=== PATIENT | male | born 1940 | race Caucasian/White ===

== ENCOUNTER → 2017-08-18 | Day surgery (SDC) | payer OTHER ==
[2017-08-03 12:35] LABS: BASOPHILS # (AUTO) 0.1 (0.0-0.1); EOSINOPHILS # (AUTO) 0.2 (0.0-0.4); EOSINOPHILS % 2.8 % (0.0-6.0); HEMATOCRIT 43.6 % (38.2-49.6); HEMOGLOBIN 14.6 g/dL (14.0-18.0); LYMPHOCYTES % 29.7 % (18.0-39.1); MEAN CORPUSCULAR HEMOGLOBIN 32.2 pg (28-32); MEAN CORPUSCULAR HGB CONC 33.5 g/dL (31-35); MEAN CORPUSCULAR VOLUME 96.2 fL (81-99); MONOCYTES # (AUTO) 0.6 (0.2-0.8); MONOCYTES % 9.2 % (4.4-11.3); NEUTROPHILS # (AUTO) 3.9 (2.1-6.9); PLATELET COUNT 161 x10e3/uL (140-360); RED BLOOD COUNT 4.53 x10e6/uL (4.3-5.7); RED CELL DISTRIBUTION WIDTH 13.2 % (11.7-14.4)
[2017-08-03 12:54] LABS: ANION GAP 12.8 mmol/L (8-16); BLOOD UREA NITROGEN 10 mg/dL (7-26); BUN/CREATININE RATIO 10 (6-25); CARBON DIOXIDE 28 mmol/L (22-29); CHLORIDE 105 mmol/L (98-107); CREATININE, SERUM 1.04 mg/dL (0.72-1.25); EST GLOMERULAR FILTRATION RATE > 60 ML/MIN (60-); GLUCOSE 80 mg/dL (74-118); POTASSIUM 3.8 mmol/L (3.5-5.1); SODIUM 142 mmol/L (136-145)
--- NOTE | 2017-08-03 12:58 | Diagnostic Imaging Report ---
PROCEDURE: Frontal and lateral views of the chest. COMPARISON: None. INDICATIONS: PREOPERATIVE CHEST XRAY FOR BLADDER SURGERY FINDINGS: Lines/tubes: None. Lungs: The lungs are well inflated and clear. There is no evidence of pneumonia or pulmonary edema. Pleura: There is no pleural effusion or pneumothorax. Heart and mediastinum: The heart and the mediastinum are normal. Bones: No acute bony abnormality. IMPRESSION: No acute cardiopulmonary disease. Dictated by: Arnoldo Moeller M.D. on 08/03/2017 at 13:07 Electronically approved by: Arnoldo Moeller M.D. on 08/03/2017 at 13:07
[~2017-08-18] MED LIST: AMIODARONE HCL200 MG PO; ATENOLOL50 MG PO; CALTRATE-600 W1 EACH PO; CEFTRIAXONE SOD 1 GM VIAL ONE; DEXAMETHASONE SOD PHOS INJ 4 MG/ML VIAL ONE; EPHEDRINE SULFATE INJ 50 MG/10 ML SYR ONE; FENTANYL CITRATE/PF 100MCG/2 ML INJ ONE; GLIPIZIDE5 MG PO; IOPAMIDOL 610MG/1ML 300 MG/ML VIAL IV ONE; LIDOCAINE HCL 2% LOCAL INJ 5 ML SDV VIAL INJ ONE; LISINOPRIL10 MG PO; MIDAZOLAM HCL 2 MG/2 ML VIAL ONE; MULTI-VITAMIN1 EACH PO; ONDANSETRON HCL INJ 2 MG/ML VIAL ONE; PROPOFOL IV EMULSION 10 MG/ML 20 ML VIAL ONE; SEVOFLURANE INHAL SOLN 250 ML PEN BTL ONE; SIMVASTATIN20 MG PO; TAMSULOSIN HCL0.4 MG PO; WARFARIN SODIUM3 MG PO
--- NOTE | 2017-08-18 11:48 | Operative Report ---
DATE OF PROCEDURE: August 18, 2017 PREOPERATIVE DIAGNOSES 1. Bladder tumor. 2. Prostate cancer. 3. Fixed bladder neck. POSTOPERATIVE DIAGNOSES 1. Bladder tumor. 2. Prostate cancer. 3. Fixed bladder neck. PROCEDURE: Flexible cystourethroscopy with transurethral fulguration of bladder tumor, medium. ANESTHESIA: General. ESTIMATED BLOOD LOSS: Minimal. COMPLICATIONS: None. INDICATIONS: Mr. Santos is a 76-year-old male with a history of bladder cancer, fixed bladder neck, status post radiation for prostate cancer. He and I had long discussion about the alternatives, risks and benefits, doing nothing, continued fulguration, risk for prostatectomy, and he elected to proceed. PROCEDURE IN DETAIL: After informed consent was obtained, the patient was taken to the operating room and placed supine on the operating table. He was placed in the dorsal lithotomy position, and sterilely prepped and draped for cystoscopy. The flexible cystoscope was inserted per urethra. There were multiple urethral strictures seen. The bladder neck was fixed as per previous and heavily calcified. Panendoscopy of the urinary bladder revealed an approximately 1.5 cm x 1 cm area of tumor cephalad to the left ureteral orifice and another near the right bladder neck. These were all fulgurated with the Bugbee electrocautery until muscular fibers were seen. It was on coagulation settings. Hemostasis was noted to be excellent. Bladder was drained. The patient was awakened from anesthesia and transported to the recovery room in excellent condition. No untoward effects noted. Job#: [id number] BOYD
== END | disposition home or self-care (01) ==
LOC: OR 05:10
PROVIDERS: ATTEND Urology
DX: D49.4 Neoplasm of unspecified behavior of bladder (principal); C61 Malignant neoplasm of prostate; C79.31 Secondary malignant neoplasm of brain; N35.9 Urethral stricture, unspecified; N32.89 Other specified disorders of bladder; H91.90 Unspecified hearing loss, unspecified ear; G47.33 Obstructive sleep apnea (adult) (pediatric); I25.10 Atherosclerotic heart disease of native coronary artery without angina pectoris; I10 Essential (primary) hypertension; E78.5 Hyperlipidemia, unspecified; I48.91 Unspecified atrial fibrillation; I44.4 Left anterior fascicular block; Z01.812 Encounter for preprocedural laboratory examination; Z01.818 Encounter for other preprocedural examination; Z79.01 Long term (current) use of anticoagulants; Z85.118 Personal history of other malignant neoplasm of bronchus and lung; Z87.01 Personal history of pneumonia (recurrent); Z87.891 Personal history of nicotine dependence; H54.8 Legal blindness, as defined in USA
CPT/HCPCS: 36415 ×2; 52235; 71046; 80048; 82948; 85025; J0696; J1100; J2001; J2250; J2405

== ENCOUNTER → 2017-11-17 | Day surgery (SDC) | payer OTHER ==
[2017-11-15 12:50] LABS: BASOPHILS # (AUTO) 0.1 (0.0-0.1); BASOPHILS % 0.9 % (0.0-1.0); EOSINOPHILS # (AUTO) 0.2 (0.0-0.4); EOSINOPHILS % 3.3 % (0.0-6.0); HEMOGLOBIN 12.8 g/dL (14.0-18.0); LYMPHOCYTES # (AUTO) 1.8 (1.0-3.2); LYMPHOCYTES % 32.8 % (18.0-39.1); MEAN CORPUSCULAR HEMOGLOBIN 32.8 pg (28-32); MEAN CORPUSCULAR HGB CONC 33.7 g/dL (31-35); MEAN CORPUSCULAR VOLUME 97.4 fL (81-99); MONOCYTES # (AUTO) 0.6 (0.2-0.8); MONOCYTES % 11.1 % (4.4-11.3); NEUTROPHILS # (AUTO) 2.8 (2.1-6.9); NEUTROPHILS % 51.7 % (38.7-80.0); PLATELET COUNT 143 x10e3/uL (140-360); RED CELL DISTRIBUTION WIDTH 13.1 % (11.7-14.4)
[2017-11-15 13:15] LABS: ANION GAP 12.1 mmol/L (8-16); BLOOD UREA NITROGEN 15 mg/dL (7-26); BUN/CREATININE RATIO 15 (6-25); CARBON DIOXIDE 27 mmol/L (22-29); CHLORIDE 104 mmol/L (98-107); CREATININE, SERUM 0.99 mg/dL (0.72-1.25); EST GLOMERULAR FILTRATION RATE > 60 ML/MIN (60-); GLUCOSE 116 mg/dL (74-118); POTASSIUM 4.1 mmol/L (3.5-5.1); SODIUM 139 mmol/L (136-145)
--- NOTE | 2017-11-15 13:29 | Diagnostic Imaging Report ---
PROCEDURE: Frontal and lateral views of the chest. COMPARISON: 08/03/2017 INDICATIONS: PRE OPERATIVE CHEST X-RAY FOR UROLOGY SURGERY FINDINGS: Lines/tubes: None. Lungs: The lungs are well inflated and clear. There is no evidence of pneumonia or pulmonary edema. Pleura: There is no pleural effusion or pneumothorax. Heart and mediastinum: The heart and the mediastinum are normal. Bones: No acute bony abnormality. Multilevel spondylosis of the thoracic spine IMPRESSION: 1. No acute cardiopulmonary disease. Dictated by: Jose Francisco Ramirez M.D. on 11/15/2017 at 13:30 Electronically approved by: Jose Francisco Ramirez M.D. on 11/15/2017 at 13:30
[~2017-11-17] MED LIST changes: +BELLADONNA/OPIUM 60 MG SUPP PR ONE; +CEFAZOLIN SOD 2 GM/D5W 50ML 50 ML IV ONE; -CEFTRIAXONE SOD 1 GM VIAL ONE; +LEVOTHYROXINE50 MCG PO; +METHYLENE BLUE 1% INJ 10 ML VIAL INJ ONE
--- OUTSIDE RECORDS SUMMARY | 2017-11-17 09:05 | XMS REPORT ---
Author Author [facility] [place] Address Unknown Phone Unavailable Care Team Providers Care Float Nurse Name Role Phone DANA CORRALES Unavailable Unavailable BECCA HAMM Unavailable Unavailable Problems This patient has no known problems. Allergies, Adverse Reactions, Alerts This patient has no known allergies or adverse reactions. Medications This patient has no known medications. Results Test Description Test Time Test Comments Text Results Atomic Results Result Comments CHEST 2 VIEWS [place] [address] Patient Name: JORGE LOZADA MR #: [id number] : 1940 Age/Sex: 76/M Req #: [id number] [facility] Physician: Ordered by: DANA CORRALES MD Report #: [id number] Location: OR Room/Bed: Procedure: [id number] DX/CHEST 2 VIEWS Exam Date: 11/15/17 Exam Time: 1230 REPORT STATUS: Signed PROCEDURE: Frontal and lateral views of the chest. COMPARISON: 08/03/2017 INDICATIONS: PRE OPERATIVE CHEST X -RAY FOR UROLOGY SURGERY FINDINGS: Lines/tubes: None. Lungs: The lungs are well inflated and clear. There is no evidence of pneumonia or pulmonary edema. Pleura: There is no pleural effusion or pneumothorax. Heart and mediastinum: The heart and the mediastinum are normal. Bones: No acute bony abnormality. Multilevel spondylosis of the thoracic spine IMPRESSION: 1. No acute cardiopulmonary disease. Dictated by: Lori Ramirez M.D. on 11/15/2017 at 13:30 Electronically approved by: Lori Ramirez M.D. on 11/15/2017 at 13:30 Dictated By: LORI RAMIREZ MD 1330 Transcribed By: ANIVAL on 11/15/17 1330 COPY TO: DANA CORRALES MD CHEST 2 VIEWS [place] [address] Patient Name: JORGE LOZADA MR #: [id number] : 1940 Age/Sex: 76/M Req #: [id number] Adm Physician: Ordered by: BECCA HAMM MD Report #: [id number] Location: OR Room/Bed: Procedure: [id number] DX/CHEST 2 VIEWS Exam Date: 08/03/17 Exam Time: 1210 REPORT STATUS: Signed PROCEDURE: Frontal and lateral views of the chest. COMPARISON: None. INDICATIONS: PREOPERATIVE CHEST XRAY FOR BLADDER SURGERY FINDINGS: Lines/tubes: None. Lungs: The lungs are well inflated and clear. There is no evidence of pneumonia or pulmonary edema. Pleura: There is no pleural effusion or pneumothorax. Heart and mediastinum: The heart and the mediastinum are normal. Bones: No acute bony abnormality. IMPRESSION: No acute cardiopulmonary disease. Dictated by: Dionisio Neff M.D. on 08/03/2017 at 13: 07 Electronically approved by: Dionisio Neff M.D. on 08/03/2017 at 13:07 Dictated By: DIONISIO NEFF MD 06 COPY TO: BECCA HAMM MD CHEST 2 VIEWS [place] [address] Patient Name: JORGE LOZADA MR #: [id number] : 1940 Age/Sex: 76/M Req #: [id number] Adm Physician: Ordered by: BECCA HAMM MD Report #: [id number] Location: OR Room/Bed: Procedure: [id number] DX/CHEST 2 VIEWS Exam Date: 05/05/17 Exam Time: 1700 REPORT STATUS: Signed PROCEDURE: Frontal and lateral views of the chest. COMPARISON: None. INDICATIONS: PREOPERATIVE FOR BLADDER SURGERY FINDINGS: Lines/tubes: None. Lungs: The lungs are well inflated and grossly clear. Ill-defined 1.6 cm nodular density projecting near the right costophrenic angle and only seen in the frontal view likely represents a nipple shadow. There is no evidence of pneumonia or pulmonary edema. Pleura: There is no pleural effusion or pneumothorax. Heart and mediastinum: The heart and the mediastinum are normal. Bones: No acute bony abnormality. IMPRESSION: 1. No acute cardiopulmonary disease. 2. 1.6 cm nodular density projecting in the right lower lung on the frontal view likely represents a nipple shadow, however, there are no prior films available for comparison. Recommend chest PA and lateral with nipple markers for further evaluation. Bari Damon M.D. Dictated by: Bari Damon M.D. on 05/05/2017 at 17:39 Electronically approved by: Bari Damon M.D. on 05/05/2017 at 17:39 Dictated By: BARI DAMON MD 38 Transcribed By: ANIVAL on 05/05/171738 COPY TO: BECCA HAMM MD
[2017-11-17 10:09] LABS: INR 1.08; PROTHROMBIN TIME 13.2 seconds (11.9-14.5)
[2017-11-17 10:10] LABS: PARTIAL THROMBOPLASTIN TIME 23.6 seconds (23.8-35.5)
--- NOTE | 2017-11-17 14:25 | Operative Report ---
DATE OF PROCEDURE: November 17, 2017 PREOPERATIVE DIAGNOSES 1. 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 2. Past history of multiple cancers, including brain cancer, lung cancer and prostate cancer that he had radiation for. 3. Hematuria. POSTOPERATIVE DIAGNOSES 1. 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 2. Past history of multiple cancers, including brain cancer, lung cancer and prostate cancer that he had radiation for. 3. Hematuria. OPERATIONS PERFORMED 1. Cystoscopy and bilateral retrograde pyelograms under fluoroscopic control. 2. Placement of double J-stent on the left side, 7-Frisian, 26 cm long. This was done due to the proximity of tumors to the orifice. 3. Transurethral resection of bladder tumor and fulguration of multiple superficial lesions. 4. Interpretation of x-ray. Radiologist not present. 5. Supervision of fluoroscopy. Radiologist not present. LPN RN: None. ANESTHESIA: General. CLINICAL INDICATION NOTE: This is a 76-year-old patient that had in the past multiple cancers, including prostate cancer that he had radiation for and recurrent transitional cell cancer of the bladder. Was brought for reassessment and resection of any visible bladder tumor. Procedure was discussed the patient. The potential benefits and complication discussed, explained and accepted. DESCRIPTION OF PROCEDURE AND FINDINGS: After proper level of anesthesia was achieved, the patient was placed in the lithotomy position, prepped and draped in a sterile fashion. Urethra inspected and is unremarkable. It was somewhat irregular. No tumor seen in the prostatic urethra. Bladder mucosa is quite pale with small vessels typical to post radiation. Both ureteral orifices are quite prominent. Bilateral retrograde pyelograms were done under fluoroscopic control. No intrinsic lesions were identified on both sides. Due to the proximity of the tumor around the left orifice, it was elected to place a double J-stent. A guidewire was kept in place, and a 7-Frisian, 26 cm long double J-stent was properly positioned on the left side. This was verified by endoscopy and x-ray. Following this, resectoscope was inserted and systematic resection of small visible tumors was done. This was followed by extensive fulguration of any visible or suspicious areas. Following this, a B and O suppository was placed after putting a 22-Frisian, 30 mL Pop catheter. Patient was transferred in satisfactory condition to the recovery room. He will be followed postop. Orders were given. Job#: [id number] RI
== END | disposition home or self-care (01) ==
LOC: OR 09:03
PROVIDERS: ATTEND Urology
DX: C67.9 Malignant neoplasm of bladder, unspecified (principal); Z87.891 Personal history of nicotine dependence; R00.1 Bradycardia, unspecified; I44.4 Left anterior fascicular block; G47.33 Obstructive sleep apnea (adult) (pediatric); I25.10 Atherosclerotic heart disease of native coronary artery without angina pectoris; I10 Essential (primary) hypertension; E78.5 Hyperlipidemia, unspecified; I48.91 Unspecified atrial fibrillation; E11.9 Type 2 diabetes mellitus without complications; Z01.810 Encounter for preprocedural cardiovascular examination; Z01.812 Encounter for preprocedural laboratory examination; Z01.818 Encounter for other preprocedural examination; Z85.841 Personal history of malignant neoplasm of brain; Z79.01 Long term (current) use of anticoagulants; Z85.118 Personal history of other malignant neoplasm of bronchus and lung; Z85.46 Personal history of malignant neoplasm of prostate
CPT/HCPCS: 36415 ×2; 52234; 52332; 71046; 74420; 80048; 82948; 85025; 85610; 85730; 88305; 93005; C2617; J1100; J2001; J2250; J2405; Q9967

== ENCOUNTER → 2017-12-28 | Day surgery (SDC) | payer OTHER ==
[2017-12-27 13:35] LABS: BASOPHILS # (AUTO) 0.1 (0.0-0.1); BASOPHILS % 0.8 % (0.0-1.0); EOSINOPHILS # (AUTO) 0.2 (0.0-0.4); EOSINOPHILS % 2.2 % (0.0-6.0); HEMATOCRIT 39.3 % (38.2-49.6); HEMOGLOBIN 12.9 g/dL (14.0-18.0); LYMPHOCYTES # (AUTO) 2.5 (1.0-3.2); LYMPHOCYTES % 34.9 % (18.0-39.1); MEAN CORPUSCULAR HEMOGLOBIN 32.7 pg (28-32); MEAN CORPUSCULAR HGB CONC 32.8 g/dL (31-35); MEAN CORPUSCULAR VOLUME 99.5 fL (81-99); MONOCYTES # (AUTO) 0.7 (0.2-0.8); MONOCYTES % 9.6 % (4.4-11.3); NEUTROPHILS # (AUTO) 3.8 (2.1-6.9); NEUTROPHILS % 52.4 % (38.7-80.0); PLATELET COUNT 167 x10e3/uL (140-360); RED BLOOD COUNT 3.95 x10e6/uL (4.3-5.7); RED CELL DISTRIBUTION WIDTH 13.2 % (11.7-14.4)
[2017-12-27 13:51] LABS: ANION GAP 12.5 mmol/L (8-16); CALCIUM 9.8 mg/dL (8.4-10.2); CREATININE, SERUM 1.31 mg/dL (0.72-1.25); POTASSIUM 4.5 mmol/L (3.5-5.1)
[~2017-12-28] MED LIST changes: +CEFAZOLIN SOD 1 GM VIAL ONE; -CEFAZOLIN SOD 2 GM/D5W 50ML 50 ML IV ONE; -EPHEDRINE SULFATE INJ 50 MG/10 ML SYR ONE; +HYDRALAZINE HCL 20 MG/ML VIAL ONE; -METHYLENE BLUE 1% INJ 10 ML VIAL INJ ONE
[2017-12-28 08:10] LABS: INR 0.98; PROTHROMBIN TIME 12.2 seconds (11.9-14.5)
[2017-12-28 08:11] LABS: PARTIAL THROMBOPLASTIN TIME 24.3 seconds (23.8-35.5)
--- NOTE | 2017-12-28 18:19 | Operative Report ---
DATE OF PROCEDURE: December 28, 2017 SERVICE: Urology. PREOPERATIVE DIAGNOSIS: 1. Transitional cell cancer of the bladder. 2. Presence of double J stent on the left side. 3. Hematuria. POSTOPERATIVE DIAGNOSIS: 1. Transitional cell cancer of the bladder. 2. Presence of double J stent on the left side. 3. Hematuria. OPERATION PERFORMED: Transurethral resection of bladder tumor of the base of the trigone and near the left ureteral orifice. ANESTHESIA: General. CLINICAL INDICATION NOTE: This is a 77-year-old patient who was found to have a transitional cell cancer of the bladder, was brought for re-resection and reassessment. The tumor was close to the ureteral orifice on the left side, requiring placement of a double J which still is in place. Procedure was discussed with the patient. He knows what is planned and accepted. DESCRIPTION OF PROCEDURE AND FINDINGS: After proper level of anesthesia was achieved, the patient was placed in lithotomy position, prepped and draped in sterile fashion. Urethra inspected, was unremarkable. The outlet is obstructed by a small prostate. Bladder is trabeculated. Significant irregular and necrotic areas were present on the trigone and difficult to identify whether this was tumor. Some of the reaction was very close to the left ureteral orifice. The right ureteral orifice could not be identified clearly. Following this, resectoscope was inserted, and resection of all the lower part and resection of the areas in the trigone and surrounding the left ureteral orifice were done. All the tissue was sent to pathology. There was significant coagulation and necrotic effect on the tissue, and that was removed. It was elected to keep the double J stent. Coagulation electrode was inserted, and any visible bleeding was carefully coagulated. A 24-Togolese 30-mL Pop catheter was inserted, and a B\T\O suppository was placed in the rectum. Patient tolerated the procedure well, was transferred in satisfactory condition to recovery room. Postop instruction given as well as pain management and Levaquin 500 mg for 5 days. Patient will be followed in the office, advised that should any acute problem arise to come to the emergency room or call 911. Job#: [id number] EV
== END | disposition home or self-care (01) ==
LOC: OR 07:08
PROVIDERS: ATTEND Urology
DX: C67.0 Malignant neoplasm of trigone of bladder (principal); N32.89 Other specified disorders of bladder; Z96.0 Presence of urogenital implants; C34.92 Malignant neoplasm of unspecified part of left bronchus or lung; C79.31 Secondary malignant neoplasm of brain; I10 Essential (primary) hypertension; I25.10 Atherosclerotic heart disease of native coronary artery without angina pectoris; I48.91 Unspecified atrial fibrillation; E78.5 Hyperlipidemia, unspecified; E11.9 Type 2 diabetes mellitus without complications; E03.9 Hypothyroidism, unspecified; Z01.812 Encounter for preprocedural laboratory examination; Z79.01 Long term (current) use of anticoagulants; Z87.891 Personal history of nicotine dependence
CPT/HCPCS: 36415 ×2; 52235; 80048; 82948; 85025; 85610; 85730; 88307; J0360; J0690; J1100; J2001; J2250; J2405; 76000; 88305

== ENCOUNTER → 2018-03-07 | Day surgery (SDC) | payer OTHER ==
[2018-03-06 09:59] LABS: BASOPHILS # (AUTO) 0.1 (0.0-0.1); EOSINOPHILS # (AUTO) 0.2 (0.0-0.4); EOSINOPHILS % 4.2 % (0.0-6.0); HEMATOCRIT 39.7 % (38.2-49.6); HEMOGLOBIN 12.8 g/dL (14.0-18.0); LYMPHOCYTES # (AUTO) 1.6 (1.0-3.2); LYMPHOCYTES % 27.9 % (18.0-39.1); MEAN CORPUSCULAR HEMOGLOBIN 31.8 pg (28-32); MEAN CORPUSCULAR HGB CONC 32.2 g/dL (31-35); MEAN CORPUSCULAR VOLUME 98.5 fL (81-99); MONOCYTES # (AUTO) 0.5 (0.2-0.8); MONOCYTES % 9.1 % (4.4-11.3); NEUTROPHILS # (AUTO) 3.3 (2.1-6.9); NEUTROPHILS % 57.1 % (38.7-80.0); PLATELET COUNT 165 x10e3/uL (140-360); RED BLOOD COUNT 4.03 x10e6/uL (4.3-5.7); RED CELL DISTRIBUTION WIDTH 13.2 % (11.7-14.4)
[~2018-03-07] MED LIST changes: -BELLADONNA/OPIUM 60 MG SUPP PR ONE; +DEXAMETHASONE SOD PHOS INJ 4 MG/ML VIAL IV ONE; -DEXAMETHASONE SOD PHOS INJ 4 MG/ML VIAL ONE; +EPHEDRINE SULFATE INJ 50 MG/10 ML SYR IV ONE; +IOPAMIDOL 300MG/ML 50ML INFUS..BTL IV ONE; -IOPAMIDOL 610MG/1ML 300 MG/ML VIAL IV ONE; +ONDANSETRON HCL INJ 2 MG/ML VIAL IV ONE; -ONDANSETRON HCL INJ 2 MG/ML VIAL ONE; +PROPOFOL IV EMULSION 10 MG/ML 20 ML VIAL IV ONE; -PROPOFOL IV EMULSION 10 MG/ML 20 ML VIAL ONE; +SEVOFLURANE INHAL SOLN 250 ML PEN BTL INH ONE; -SEVOFLURANE INHAL SOLN 250 ML PEN BTL ONE
--- NOTE | 2018-03-07 10:56 | Operative Report ---
DATE OF PROCEDURE: March 07, 2018 SERVICE: Urology. PREOPERATIVE DIAGNOSES: 1. Transitional cell cancer of the bladder. 2. Left hydronephrosis. 3. Left double-J stent. 4. Hematuria. POSTOPERATIVE DIAGNOSES: 1. Transitional cell cancer of the bladder. 2. Left hydronephrosis. 3. Left double-J stent. 4. Hematuria. OPERATIONS PERFORMED: 1. Cystoscopy and removal of double-J stent from the left side. 2. Left retrograde pyelograms under fluoroscopic control. 3. Left ureteroscopy. 4. Placement of double-J stent 7-Icelandic 26 cm long to the left side. All these 4 procedures are not related to the bladder tumor. 5. Transurethral resection of the bladder tumor, base of the trigone. 6. Interpretation of x-ray, radiologist not present. 7. Supervision of fluoroscopy, radiologist not present. EXTRA GANG SUPERVISOR: None. ANESTHESIA: General. CLINICAL INDICATION NOTE: This is 77-year-old patient who had transitional cell cancer of the bladder. Previous biopsy and resection showed early small tumor. The tumor is near the left ureteral orifice. There is left hydro and a double-J stent in place. He was brought for reassessment of the left side, and transurethral resection of the areas of the trigone where the tumor used to be. Procedure was discussed with the patient. He is aware that he will have a catheter following the procedure, and he may be staying in the hospital if needed for observation and irrigation of the bladder. DESCRIPTION OF PROCEDURE AND FINDINGS: After proper level of anesthesia was achieved, the patient was placed in lithotomy position, prepped and draped in sterile fashion. Urethra inspected is unremarkable. The outlet is minimally obstructed by enlarged prostate. In the trigone, there are areas of what appeared to be necrotic tissue. The double-J stent is protruding from the left ureteral orifice which is surrounded by the similar irregular areas. No clear papillary lesions were identified. The double-J stent was removed, open-end catheter was kept, and retrograde pyelogram demonstrating some dilation of the upper collecting system. The ureter is unremarkable. A wire was kept in place and flexible ureteroscopy was done. No tumor was identified in the kidney or along the ureter. The wire was kept in place and a 7-Icelandic 26 cm long double-J stent was properly positioned on the left side. Following this, resectoscope was inserted. Any visible area on the trigone in the center and to the left was resected. Deep resection was done as well, and the specimen was sent to pathology. Following this, any visible bleeding points were carefully coagulated. A 24, 3-way Pop catheter was inserted and it was connected to continuous irrigation. Patient was transferred in satisfactory condition to recovery room. Job#: [id number]
== END | disposition home or self-care (01) ==
LOC: OR 06:53
PROVIDERS: ATTEND Urology
DX: C67.9 Malignant neoplasm of bladder, unspecified (principal); N13.30 Unspecified hydronephrosis; N40.1 Benign prostatic hyperplasia with lower urinary tract symptoms; N13.8 Other obstructive and reflux uropathy; Z46.6 Encounter for fitting and adjustment of urinary device; H91.93 Unspecified hearing loss, bilateral; G47.33 Obstructive sleep apnea (adult) (pediatric); E11.9 Type 2 diabetes mellitus without complications; I10 Essential (primary) hypertension; E78.5 Hyperlipidemia, unspecified; I48.91 Unspecified atrial fibrillation; E66.9 Obesity, unspecified; Z01.810 Encounter for preprocedural cardiovascular examination; Z01.812 Encounter for preprocedural laboratory examination; Z79.84 Long term (current) use of oral hypoglycemic drugs; Z85.46 Personal history of malignant neoplasm of prostate; Z85.118 Personal history of other malignant neoplasm of bronchus and lung; Z85.841 Personal history of malignant neoplasm of brain; Z87.01 Personal history of pneumonia (recurrent)
CPT/HCPCS: 36415 ×2; 52234; 52332; 52351; 74420; 82948; 85025; 86850; 86900; 88305; 93005; C1758; C2617; J0360; J0690; J1100; J2001; J2250; J2405; Q9967

== ENCOUNTER → 2018-06-13 | Day surgery (SDC) | payer OTHER ==
[2018-06-12 12:06] LABS: INR 0.88; PROTHROMBIN TIME 12.8 seconds (11.9-14.5)
[2018-06-12 12:07] LABS: PARTIAL THROMBOPLASTIN TIME 25.1 seconds (23.8-35.5)
[~2018-06-13] MED LIST changes: +AMLODIPINE BESYL5 MG PO; +ASPIRIN; -DEXAMETHASONE SOD PHOS INJ 4 MG/ML VIAL IV ONE; +DEXAMETHASONE SOD PHOS INJ 4 MG/ML VIAL ONE; -EPHEDRINE SULFATE INJ 50 MG/10 ML SYR IV ONE; +EPHEDRINE SULFATE INJ 50 MG/10 ML SYR ONE; -HYDRALAZINE HCL 20 MG/ML VIAL ONE; -IOPAMIDOL 300MG/ML 50ML INFUS..BTL IV ONE; +IOPAMIDOL 610MG/1ML 300 MG/ML VIAL IV ONE; +LISINOPRIL40 MG; -ONDANSETRON HCL INJ 2 MG/ML VIAL IV ONE; +ONDANSETRON HCL INJ 2 MG/ML VIAL ONE; -PROPOFOL IV EMULSION 10 MG/ML 20 ML VIAL IV ONE; +PROPOFOL IV EMULSION 10 MG/ML 20 ML VIAL ONE; -SEVOFLURANE INHAL SOLN 250 ML PEN BTL INH ONE; +SEVOFLURANE INHAL SOLN 250 ML PEN BTL ONE; +WARFARIN
[2018-06-13 11:15] VITALS: BP 143/67
--- NOTE | 2018-06-13 12:50 | Operative Report ---
DATE OF PROCEDURE: June 13, 2018 SERVICE: Urology. PREOPERATIVE DIAGNOSES: 1. Left hydronephrosis. 2. Left double J stent. 3. Microhematuria. 4. History of transitional cell cancer of the bladder. POSTOPERATIVE DIAGNOSES: 1. Left hydronephrosis. 2. Left double J stent. 3. Microhematuria. 4. History of transitional cell cancer of the bladder. 5. Necrotic area in the floor of the bladder on the trigone. OPERATIONS PERFORMED: 1. Cystourethroscopy and right retrograde pyelograms under fluoroscopic control. This was done with different instrument for assessment of the microhematuria. 2. Removal of double J stent from the left side. 3. Left retrograde pyelograms under fluoroscopic control. 4. Left ureteroscopy under fluoroscopic control. 5. Multiple bladder biopsies on the floor of the bladder. 6. Fulguration of bleeding points. 7. Interpretation of x-ray. Radiologist not present. 8. Supervision of fluoroscopy. Radiologist not present. BAGGAGEMAN: None. ANESTHESIA: General. CLINICAL INDICATION NOTE: This is a 77-year-old patient that had transitional cell cancer of the bladder and has a stent on the left side. He was brought for evaluation of both sides as well as rebiopsy of the bladder lesions. Procedure was discussed with the patient, for which he desired not to have a Pop at the end of the procedure. DESCRIPTION OF PROCEDURE AND FINDINGS: After a proper level of anesthesia was achieved, the patient was placed in lithotomy position and prepped and draped in sterile fashion. Urethra inspected, was unremarkable. The bladder outlet was patent and minimally obstructed by a large prostate. On the floor of the bladder, there is necrotic whitish tissue over the trigone. Both ureteral orifices were identified. Double J stent was protruding from the left side. Open-end catheter was inserted to the right side, and retrograde pyelograms were done, demonstrating normal ureter. Upper collecting system was also unremarkable. Following this, the double J stent from the left side was removed. Open-end catheter inserted and retrograde pyelograms demonstrating minimal dilation of the upper collecting system. A wire was kept in place, and a flexible ureteroscopy was done. No intrinsic lesions or stones were identified. It was elected not to reposition the double J stent. Following this, cup biopsies were inserted, and systematic biopsies of the floor of the bladder were done. A lot of the specimen appeared to be quite necrotic tissue. It was elected not to do a resection at the present time and waiting for the pathology before any further decisions are made. Following this, a Bugbee electrode was inserted, and any visible bleeding points were carefully coagulated. Patient tolerated procedure well. Specimen was sent to pathology. Patient was transferred in satisfactory condition to the recovery room. He will be followed in 2 or 3 weeks. Postop instructions given. Job#: [id number] EV
== END | disposition home or self-care (01) ==
LOC: OR 07:50
PROVIDERS: ATTEND Urology
DX: N13.30 Unspecified hydronephrosis (principal); Z85.51 Personal history of malignant neoplasm of bladder; Z46.6 Encounter for fitting and adjustment of urinary device; N32.89 Other specified disorders of bladder; N40.1 Benign prostatic hyperplasia with lower urinary tract symptoms; N13.8 Other obstructive and reflux uropathy; E66.9 Obesity, unspecified; E11.9 Type 2 diabetes mellitus without complications; I10 Essential (primary) hypertension; I48.91 Unspecified atrial fibrillation; I44.4 Left anterior fascicular block; Z01.810 Encounter for preprocedural cardiovascular examination; Z01.812 Encounter for preprocedural laboratory examination; Z79.82 Long term (current) use of aspirin; Z79.01 Long term (current) use of anticoagulants; Z79.84 Long term (current) use of oral hypoglycemic drugs; Z85.46 Personal history of malignant neoplasm of prostate; Z85.118 Personal history of other malignant neoplasm of bronchus and lung; Z92.21 Personal history of antineoplastic chemotherapy; Z92.3 Personal history of irradiation
CPT/HCPCS: 36415 ×2; 52214; 52351; 74420; 82948; 85610; 85730; 88305; 93005; J0690; J1100; J2001; J2250; J2405; J2704; Q9967; 88304

== ENCOUNTER → 2018-11-02 | Day surgery (SDC) | payer OTHER ==
[2018-11-01 11:33] LABS: ANION GAP 12.1 mmol/L (8-16); BLOOD UREA NITROGEN 17 mg/dL (7-26); BUN/CREATININE RATIO 18 (6-25); CALCIUM 9.2 mg/dL (8.4-10.2); CARBON DIOXIDE 28 mmol/L (22-29); CHLORIDE 102 mmol/L (98-107); CREATININE, SERUM 0.97 mg/dL (0.72-1.25); EST GLOMERULAR FILTRATION RATE > 60 ML/MIN (60-); GLUCOSE 99 mg/dL (74-118); POTASSIUM 4.1 mmol/L (3.5-5.1); SODIUM 138 mmol/L (136-145)
[2018-11-01 12:03] LABS: BASOPHILS # (AUTO) 0.1 (0.0-0.1); BASOPHILS % 1.4 % (0.0-1.0); EOSINOPHILS # (AUTO) 0.2 (0.0-0.4); EOSINOPHILS % 3.3 % (0.0-6.0); HEMATOCRIT 38.5 % (38.2-49.6); HEMOGLOBIN 12.5 g/dL (14.0-18.0); LYMPHOCYTES # (AUTO) 1.7 (1.0-3.2); LYMPHOCYTES % 29.1 % (18.0-39.1); MEAN CORPUSCULAR HEMOGLOBIN 31.8 pg (28-32); MEAN CORPUSCULAR HGB CONC 32.5 g/dL (31-35); MONOCYTES # (AUTO) 0.6 (0.2-0.8); MONOCYTES % 10.7 % (4.4-11.3); NEUTROPHILS # (AUTO) 3.2 (2.1-6.9); NEUTROPHILS % 55.3 % (38.7-80.0); PLATELET COUNT 169 x10e3/uL (140-360); RED BLOOD COUNT 3.93 x10e6/uL (4.3-5.7); RED CELL DISTRIBUTION WIDTH 13.4 % (11.7-14.4)
[~2018-11-02] MED LIST changes: +ACETAMINOPHEN/CODEINE 300MG - 30MG TAB ONE; -ASPIRIN; +ASPIRIN PO; +BELLADONNA/OPIUM 60 MG SUPP PR ONE; -CEFAZOLIN SOD 1 GM VIAL ONE; +CEFAZOLIN SOD 2 GM/D5W 50ML 50 ML IV ONE; +COMPLETE SENIO1 EACH; -ONDANSETRON HCL INJ 2 MG/ML VIAL ONE; +ONDANSETRON HCL INJ 2MG/ML 2ML 2 MG/ML VIAL ONE
[2018-11-02 12:10] VITALS: BP 143/80
--- NOTE | 2018-11-03 00:16 | Operative Report ---
DATE OF PROCEDURE: 11/02/2018 SURGEON: Mariela Pak MD SERVICE: Urology. PREOPERATIVE DIAGNOSES: 1. History of transitional cell cancer of the bladder, recurrent lesion. 2. Hematuria. 3. BPH. POSTOPERATIVE DIAGNOSES: 1. History of transitional cell cancer of the bladder, recurrent lesion. 2. Hematuria. 3. BPH. OPERATIONS PERFORMED: 1. Cystoscopy and bilateral retrograde pyelograms under fluoroscopy control. This is done as part of the assessment of the hematuria. 2. Interpretation of x-ray, radiologist not present. 3. Supervision of fluoroscopy, radiologist is not present. 4. Transurethral resection of trigone lesion. 5. . VISITOR SERVICES REPRESENTATIVE: None. ANESTHESIA: General. CLINICAL INDICATION: This is a 77-year-old patient with a history of transitional cell cancer of the bladder. Upon cystoscopy in the office, irregular areas and these areas appeared necrotic on the trigone close to both both ureteral orifices. However, no tumor involved in them. The patient was brought for reassessment of upper tract, plus or minus resection of that area. Procedures were discussed with the patient. Potential benefits and complications discussed, explained, and accepted. He is aware that he may require Pop following the procedure. DESCRIPTION OF PROCEDURE AND FINDINGS: After appropriate level of anesthesia was achieved, the patient was placed in lithotomy position, prepped and draped in the usual sterile fashion. The urethra was inspected and it is unremarkable and was patent. He did have previous surgery of the prostate. At the trigone, there are irregular areas and both ureteral orifices are very close to each. The bladder is trabeculated. No other tumor or lesions were identified. Open-end catheters inserted bilaterally and retrograde pyelogram. The upper tract appear to be unremarkable. No filling defect or stones were identified. Following this, scope was removed and resectoscope was inserted and the areas on the trigone were carefully resected. Care was taken not to injury both ureteral orifices. Verumontanum was also intact. Following this, a 22- Maltese Pop catheter was inserted. B and O suppository were placed in the rectum. The patient was transferred in the satisfactory condition to the recovery. Postoperative instructions given. Mariela Pak MD [place]/MODRico /[id number]
== END | disposition home or self-care (01) ==
LOC: OR 08:18
PROVIDERS: ATTEND Urology
DX: N32.89 Other specified disorders of bladder (principal); Z85.51 Personal history of malignant neoplasm of bladder; N40.0 Benign prostatic hyperplasia without lower urinary tract symptoms; I10 Essential (primary) hypertension; I44.4 Left anterior fascicular block; Z87.891 Personal history of nicotine dependence; E11.9 Type 2 diabetes mellitus without complications; E03.9 Hypothyroidism, unspecified; C61 Malignant neoplasm of prostate; I48.91 Unspecified atrial fibrillation; Z01.810 Encounter for preprocedural cardiovascular examination; Z01.812 Encounter for preprocedural laboratory examination; Z79.82 Long term (current) use of aspirin; Z79.84 Long term (current) use of oral hypoglycemic drugs; Z85.118 Personal history of other malignant neoplasm of bronchus and lung; Z87.01 Personal history of pneumonia (recurrent)
CPT/HCPCS: 36415 ×2; 52005; 52235; 74420; 80048; 82948; 85025; 88307; 93005; C1758; J0690; J1100; J2001; J2250; J2405; J2704; Q9967; 88305

== ENCOUNTER → 2025-04-10 | Outpatient (REF) | payer MEDICARE ==
[~2025-04-10] MED LIST changes: -ACETAMINOPHEN/CODEINE 300MG - 30MG TAB ONE; -BELLADONNA/OPIUM 60 MG SUPP PR ONE; -CEFAZOLIN SOD 2 GM/D5W 50ML 50 ML IV ONE; -DEXAMETHASONE SOD PHOS INJ 4 MG/ML VIAL ONE; -EPHEDRINE SULFATE INJ 50 MG/10 ML SYR ONE; -FENTANYL CITRATE/PF 100MCG/2 ML INJ ONE; -IOPAMIDOL 610MG/1ML 300 MG/ML VIAL IV ONE; -LIDOCAINE HCL 2% LOCAL INJ 5 ML SDV VIAL INJ ONE; -MIDAZOLAM HCL 2 MG/2 ML VIAL ONE; -ONDANSETRON HCL INJ 2MG/ML 2ML 2 MG/ML VIAL ONE; -PROPOFOL IV EMULSION 10 MG/ML 20 ML VIAL ONE; -SEVOFLURANE INHAL SOLN 250 ML PEN BTL ONE
== END ==
LOC: US 13:27
PROVIDERS: ATTEND Urology
DX: C67.9 Malignant neoplasm of bladder, unspecified (principal); N18.9 Chronic kidney disease, unspecified; R31.21 Asymptomatic microscopic hematuria
CPT/HCPCS: 76770; 76857